=== PATIENT | male | born 1975 | race African-American/Black ===

== ENCOUNTER 2022-04-14 11:53 | Inpatient (IN) | payer MEDICARE, MEDICAID ==
[~2022-04-14] VITALS: Ht 165.1 cm; Wt 63.5 kg
[2022-04-14 18:29] LABS: HEMATOCRIT. 33.7 % (42.0-52.0); HEMOGLOBIN. 11.3 g/dL (14.0-18.0); MEAN CORPUSCULAR HEMOGLOBIN 27.4 pg (28.0-32.0); MEAN CORPUSCULAR VOLUME 81.8 fL (80.0-94.0); MEAN PLATELET VOLUME 8.8 fl (7.4-10.4); PLATELET 248 x1000/uL (130-400); RED BLOOD CELL COUNT 4.13 mill/uL (4.7-6.1); RED CELL DISTRIBUTION WIDTH 15.4 % (11.6-14.6)
[2022-04-14] MEDS ORDERED: MORPHINE SULFATE 4 MG/ML CPJ (NOT FOR IM USE) IV ONE ×2 (18:30→19:45)
[2022-04-14] MEDS ORDERED: ONDANSETRON HCL 4MG/2ML INJ IV ONE (18:30)
[2022-04-14 18:39] LABS: INR 1.1; PROTHROMBIN TIME 11.3 sec (9.6-11.0)
[2022-04-14 18:41] LABS: CHLORIDE 104 mEq/L (98-107)
[2022-04-14 18:58] LABS: PLATELET ESTIMATE NORMAL
[2022-04-14] MEDS ORDERED: SODIUM CHLORIDE 0.9% 1,000 ML IV ONE (19:00)
[2022-04-14] MEDS ORDERED: KCL 20MEQ/100ML PREMIX 100 ML IV ONE (19:15)
[2022-04-14] MEDS ORDERED: PROPOFOL 200MG/20ML VIAL IV ONE (20:42)
[2022-04-14] MEDS ORDERED: MIDAZOLAM HCL 2 MG/2 ML VIAL ONE (20:43)
[2022-04-14] MEDS ORDERED: FENTANYL CITRATE/PF 50MCG/ML 2ML VIAL ONE ×2 (20:43→22:03)
[2022-04-14] MEDS ORDERED: SUCCINYLCHOLINE CHLORIDE 200MG/10ML IV ONE (20:52)
[2022-04-14] MEDS ORDERED: DEXAMETHASONE 4MG/ML 1ML VIAL ONE (20:52)
[2022-04-14] MEDS ORDERED: CEFAZOLIN SODIUM 1000MG/VIAL ONE (20:52)
[2022-04-14] MEDS ORDERED: ONDANSETRON HCL 4MG/2ML INJ ONE (20:52)
[2022-04-14] MEDS ORDERED: ROCURONIUM BROMIDE 10MG/ML VIAL 5ML IV ONE (20:54)
[2022-04-14] MEDS ORDERED: BUPIVACAINE HCL/PF 0.5% (5MG/ML) 10ML ONE (21:26)
[2022-04-14] MEDS ORDERED: ALBUMIN HUMAN 25GM/100ML (25%) IV ONE (21:27)
[2022-04-14] MEDS ORDERED: ONDANSETRON HCL 4MG/2ML INJ IV PRN (21:30)
[2022-04-14] MEDS ORDERED: LIDOCAINE HCL 1% 10 MG/ML 10ML VIAL ONE (21:46)
[2022-04-14] MEDS ORDERED: FENTANYL CITRATE/PF 50MCG/ML 2ML VIAL IV PRN (22:15)
[2022-04-14] MEDS ORDERED: HYDROMORPHONE HCL/PF 2MG/ML CPJ IV PRN (22:15)
[2022-04-14] MEDS ORDERED: METRONIDAZOLE 500 MG PREMIX 100 ML IV SCH (23:00)
[2022-04-15] MEDS: DEXT 5%/0.45% NACL KCL 20MEQ/L 1,000 ML IV SCH ×4 (01:24→21:54)
[2022-04-15] MEDS: METRONIDAZOLE 500 MG PREMIX 100 ML IV SCH ×2 (05:16→13:25)
[2022-04-15] MEDS: MORPHINE SULFATE 4 MG/ML CPJ (NOT FOR IM USE) IV PRN (05:17)
[2022-04-15] MEDS ORDERED: CEFAZOLIN 1000MG PREMIX 50 ML IV SCH (06:00)
[2022-04-15] MEDS ORDERED: NALOXONE HCL 0.4MG/ML VIAL IV PRN (07:30)
[2022-04-15] MEDS: CEFAZOLIN 1000MG PREMIX 50 ML IV SCH ×3 (08:47→23:56)
[2022-04-15] MEDS: FAMOTIDINE 20MG/2ML VIAL IV SCH ×2 (08:48→21:55)
[2022-04-15] MEDS: MORPHINE SULFATE 2 MG/ML CPJ (NOT FOR IM USE) IV PRN ×2 (13:26→20:22)
[2022-04-15 20:00] VITALS: BP 125/80
[2022-04-16] VITALS: BP 113/80
[2022-04-16] MEDS: MORPHINE SULFATE 2 MG/ML CPJ (NOT FOR IM USE) IV PRN ×4 (02:41→20:42)
[2022-04-16 04:00] VITALS: BP 122/86
[2022-04-16] MEDS: DEXT 5%/0.45% NACL KCL 20MEQ/L 1,000 ML IV SCH ×2 (06:28→17:23)
[2022-04-16 06:49] LABS: HEMATOCRIT. 22.6 % (42.0-52.0); HEMOGLOBIN. 7.6 g/dL (14.0-18.0); MEAN CORPUSCULAR HEMOGLOBIN 27.5 pg (28.0-32.0); MEAN CORPUSCULAR VOLUME 81.4 fL (80.0-94.0); MEAN PLATELET VOLUME 8.6 fl (7.4-10.4); PLATELET 175 x1000/uL (130-400); RED BLOOD CELL COUNT 2.78 mill/uL (4.7-6.1); RED CELL DISTRIBUTION WIDTH 15.7 % (11.6-14.6)
[2022-04-16 06:53] LABS: CHLORIDE 111 mEq/L (98-107)
[2022-04-16 08:00] VITALS: BP 123/79
[2022-04-16] MEDS: FAMOTIDINE 20MG/2ML VIAL IV SCH ×2 (09:22→20:42)
[2022-04-16 11:58] VITALS: BP 133/82
[2022-04-16 14:25] LABS: PLATELET ESTIMATE NORMAL
[2022-04-16 16:00] VITALS: BP 122/84
[2022-04-16 20:00] VITALS: BP 146/90
[2022-04-17] VITALS: BP 148/93
[2022-04-17] MEDS: MORPHINE SULFATE 2 MG/ML CPJ (NOT FOR IM USE) IV PRN ×6 (02:56→23:05)
[2022-04-17] MEDS: DEXT 5%/0.45% NACL KCL 20MEQ/L 1,000 ML IV SCH ×3 (02:57→21:46)
[2022-04-17 04:00] VITALS: BP 131/91
[2022-04-17 08:00] VITALS: BP 130/89
[2022-04-17] MEDS: FAMOTIDINE 20MG/2ML VIAL IV SCH ×2 (08:31→21:00)
[2022-04-17 08:34] LABS: HEMATOCRIT. 22.8 % (42.0-52.0); HEMOGLOBIN. 7.9 g/dL (14.0-18.0); MEAN CORPUSCULAR HEMOGLOBIN 28.3 pg (28.0-32.0); MEAN CORPUSCULAR VOLUME 81.6 fL (80.0-94.0); MEAN PLATELET VOLUME 8.5 fl (7.4-10.4); PLATELET 210 x1000/uL (130-400); RED CELL DISTRIBUTION WIDTH 15.5 % (11.6-14.6)
[2022-04-17 08:59] LABS: CHLORIDE 108 mEq/L (98-107)
[2022-04-17 12:00] VITALS: BP 117/88
[2022-04-17 16:00] VITALS: BP 129/94
[2022-04-17 20:19] LABS: PLATELET ESTIMATE NORMAL
[2022-04-18] VITALS: BP 125/75
[2022-04-18] MEDS: MORPHINE SULFATE 2 MG/ML CPJ (NOT FOR IM USE) IV PRN ×4 (02:05→19:00)
[2022-04-18 04:00] VITALS: BP 134/98
[2022-04-18 08:00] VITALS: BP 141/96
[2022-04-18] MEDS: FAMOTIDINE 20MG/2ML VIAL IV SCH ×2 (09:44→20:22)
[2022-04-18] MEDS: DEXT 5%/0.45% NACL KCL 20MEQ/L 1,000 ML IV SCH ×2 (11:00→19:00)
[2022-04-18 12:00] VITALS: BP 146/95
[2022-04-18] MEDS: MORPHINE SULFATE 4 MG/ML CPJ (NOT FOR IM USE) IV PRN ×2 (12:57→15:58)
[2022-04-18 13:11] LABS: HIV 1 ABS Reactive (Non Reactive); HIV 2 ABS Non Reactive (Non Reactive); HIV SCREEN 4G Preliminary Reactive (Non Reactive); INTERPRETATION HIV-1 Positive (.)
[2022-04-18 16:00] VITALS: BP 141/96
[2022-04-18] MEDS: ACETAMINOPHEN 500MG TABLET PO SCH ×2 (16:29→20:15)
[2022-04-18 20:00] VITALS: BP 130/90
[2022-04-19] VITALS: BP 130/90
[2022-04-19 04:00] VITALS: BP 130/90
[2022-04-19] MEDS: MORPHINE SULFATE 2 MG/ML CPJ (NOT FOR IM USE) IV PRN ×3 (04:00→15:12)
[2022-04-19] MEDS: DEXT 5%/0.45% NACL KCL 20MEQ/L 1,000 ML IV SCH ×2 (04:33→15:12)
[2022-04-19] MEDS: ACETAMINOPHEN 500MG TABLET PO SCH ×3 (04:33→22:28)
[2022-04-19 08:00] VITALS: BP 149/101
[2022-04-19 08:14] LABS: HEMATOCRIT. 22.8 % (42.0-52.0); HEMOGLOBIN. 7.7 g/dL (14.0-18.0); MEAN CORPUSCULAR HEMOGLOBIN 27.5 pg (28.0-32.0); MEAN CORPUSCULAR VOLUME 81.1 fL (80.0-94.0); MEAN PLATELET VOLUME 8.3 fl (7.4-10.4); PLATELET 236 x1000/uL (130-400); RED BLOOD CELL COUNT 2.81 mill/uL (4.7-6.1); RED CELL DISTRIBUTION WIDTH 15.4 % (11.6-14.6)
[2022-04-19 08:30] LABS: CHLORIDE 106 mEq/L (98-107)
[2022-04-19] MEDS: FAMOTIDINE 20MG/2ML VIAL IV SCH ×2 (08:53→20:15)
[2022-04-19 12:00] VITALS: BP 157/101
[2022-04-19 14:43] LABS: PLATELET ESTIMATE NORMAL
[2022-04-19 16:00] VITALS: BP 15/106
[2022-04-19 20:00] VITALS: BP 144/98
[2022-04-19] MEDS: MORPHINE SULFATE 4 MG/ML CPJ (NOT FOR IM USE) IV PRN (20:15)
[2022-04-20] VITALS (7 sets, daily range): BP systolic 108–150; BP diastolic 67–93
[2022-04-20] MEDS: DEXT 5%/0.45% NACL KCL 20MEQ/L 1,000 ML IV SCH ×3 (00:53→21:00)
[2022-04-20] MEDS: MORPHINE SULFATE 4 MG/ML CPJ (NOT FOR IM USE) IV PRN ×2 (02:24→21:29)
[2022-04-20] MEDS: ACETAMINOPHEN 500MG TABLET PO SCH ×3 (06:19→23:16)
[2022-04-20] MEDS: MORPHINE SULFATE 2 MG/ML CPJ (NOT FOR IM USE) IV PRN ×3 (06:21→18:22)
[2022-04-20] MEDS: FAMOTIDINE 20MG/2ML VIAL IV SCH ×2 (09:54→21:26)
[2022-04-20] MEDS ORDERED: NALOXONE HCL 0.4MG/ML VIAL IV PRN (19:15)
[2022-04-21] VITALS: BP 142/78
[2022-04-21 04:00] VITALS: BP 138/78
[2022-04-21] MEDS: ACETAMINOPHEN 500MG TABLET PO SCH (05:50)
== END 2022-04-21 07:20 | DRG 330 ==
LOC: ER 12:57 → 7WST 04-15 00:28 → 6EST 04-15 07:15
PROVIDERS: ADMIT Internal Medicine; ATTEND Internal Medicine
PROC: 0DTF0ZZ Resection of Right Large Intestine, Open Approach (ICD-10-PCS; principal; 2022-04-15)
DX: K56.1 Intussusception (principal); B20 Human immunodeficiency virus [HIV] disease; K92.2 Gastrointestinal hemorrhage, unspecified; E87.6 Hypokalemia; D64.89 Other specified anemias; Z79.2 Long term (current) use of antibiotics; Z20.822 Contact with and (suspected) exposure to COVID-19
CPT/HCPCS: 36415; 74176; 80048; 80053; 82270; 85025; 86701; 86702; 86850; 86900; 87389; 87426; 88307; 93005; 97116; 97162; 97530; 99285; C1893; C9803; J0330; J0690; J1100; J1170; J2250; J2270; J2405; J2704; J3010; J3480; J3490; J7030; P9047

== ENCOUNTER 2022-10-17 09:18 | Emergency (ER) | payer MEDICARE, MEDICAID ==
[~2022-10-17] VITALS: Ht 165.1 cm; Wt 59.1 kg
[2022-10-17 09:59] LABS: HEMATOCRIT. 31.6 % (42.0-52.0); HEMOGLOBIN. 10.7 g/dL (14.0-18.0); MEAN CORPUSCULAR HEMOGLOBIN 26.5 pg (28.0-32.0); MEAN CORPUSCULAR VOLUME 78.3 fL (80.0-94.0); MEAN PLATELET VOLUME 8.1 fl (7.4-10.4); PLATELET 228 x1000/uL (130-400); RED BLOOD CELL COUNT 4.04 mill/uL (4.7-6.1)
[2022-10-17 10:00] LABS: CHLORIDE 107 mEq/L (98-107)
[2022-10-17 10:43] LABS: PLATELET ESTIMATE NORMAL
[2022-10-17 14:49] VITALS: BP 136/98
== END 2022-10-17 17:23 | disposition left against medical advice (07) ==
LOC: ER 09:18
DX: Z53.21 Procedure and treatment not carried out due to patient leaving prior to being seen by health care provider (principal); I49.9 Cardiac arrhythmia, unspecified
CPT/HCPCS: 36415; 80053; 83605; 84484; 85025; 93005; 99281